=== PATIENT | female | born 1985 | race Caucasian/White ===

== ENCOUNTER 2016-12-05 14:59 | Emergency (ER) | payer OTHER ==
[~2016-12-05] VITALS: Ht 162.6 cm; Wt 77.1 kg
== END 2016-12-05 15:21 | disposition home or self-care (01) ==
LOC: ED 14:59
DX: Z00.8 Encounter for other general examination (principal)

== ENCOUNTER 2022-03-31 14:38 | Emergency (ER) | payer OTHER ==
[~2022-03-31] VITALS: Ht 157.5 cm; Wt 84.4 kg
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
[2022-03-31] MEDS ORDERED: BLISOVI FE 1-21 EACH PO (16:51)
[2022-03-31] MEDS ORDERED: IPRAT-ALBUT 0.5-3 ML INH (16:51)
[2022-03-31] MEDS ORDERED: LORATADINE10 MG PO (16:52)
[2022-03-31] MEDS ORDERED: CETIRIZINE HCL10 MG PO (16:52)
[2022-03-31] MEDS ORDERED: ONDANSETRON ODT8 MG PO (18:16)
== END 2022-03-31 18:36 | disposition home or self-care (01) ==
LOC: ED 14:38
DX: S06.0X0A Concussion without loss of consciousness, initial encounter (principal); J45.909 Unspecified asthma, uncomplicated; Z91.048 Other nonmedicinal substance allergy status; Z91.040 Latex allergy status; Z91.018 Allergy to other foods; W22.8XXA Striking against or struck by other objects, initial encounter
CPT/HCPCS: 99283; A9270